=== PATIENT | female | born 1940 | race Caucasian/White ===

== ENCOUNTER 2018-09-12 10:37 | Day surgery (SDC) | payer MEDICARE, OTHER ==
[~2018-09-12 10:37] MED LIST: Lactated Ringers 1,000 ML IV SCH; Sodium Chloride 0.9% 10 ML Syringe FLUSH PRN
[2018-09-12] MEDS ORDERED: Propofol 200 MG/20 ML SDV ONE ×2 (10:54→13:16)
[2018-09-12] MEDS ORDERED: fentaNYL 100 MCG/2 ML SDV ONE (10:56)
--- NOTE | 2018-09-12 14:09 | OR ---
PREOPERATIVE DIAGNOSIS: Screening colonoscopy. POSTOPERATIVE DIAGNOSIS: Screening colonoscopy. PROCEDURE PERFORMED: Screening colonoscopy. INDICATION: The patient is a 77-year-old female, who presents for screening colonoscopy at this time. PROCEDURE IN DETAIL: This was done in the endoscopy suite. Sedation was given per Anesthesia. She was placed in left lateral position. First, a rectal exam was done, was normal. Scope was introduced in the rectum, slowly advanced to the rectum, sigmoid, descending, transverse, and descending colon until the cecum was reached. Upon reaching the cecum, the scope was slowly withdrawn looking at all mucosal surfaces on the way out. No mucosal abnormalities, lesions, or polyps were noted. FINAL DIAGNOSIS: Normal colonoscopy. BKD: 09/12/2018 13:22:19 MODL: 09/12/2018 13:54:05 /[id number]
== END 2018-09-12 14:35 | disposition home or self-care (01) ==
LOC: VM.SDS 10:37
PROVIDERS: ATTEND Surgery
DX: Z12.11 Encounter for screening for malignant neoplasm of colon (principal); J01.91 Acute recurrent sinusitis, unspecified; J44.9 Chronic obstructive pulmonary disease, unspecified; I34.0 Nonrheumatic mitral (valve) insufficiency; D64.9 Anemia, unspecified; K21.9 Gastro-esophageal reflux disease without esophagitis; F32.9 Major depressive disorder, single episode, unspecified; M19.90 Unspecified osteoarthritis, unspecified site; E74.39 Other disorders of intestinal carbohydrate absorption; Z91.040 Latex allergy status; Z88.2 Allergy status to sulfonamides; Z91.018 Allergy to other foods; Z91.048 Other nonmedicinal substance allergy status; Z79.1 Long term (current) use of non-steroidal anti-inflammatories (NSAID); Z79.899 Other long term (current) drug therapy; Z79.82 Long term (current) use of aspirin
CPT/HCPCS: 00812; G0121; J2704; J3010; J7120

== ENCOUNTER 2018-11-03 13:14 | Inpatient (IN) | payer MEDICARE, OTHER ==
[2018-11-03] MEDS ORDERED: Albuterol 0.083% 2.5 MG/3 ML Neb Soln INH PRN (18:57)
[2018-11-03] MEDS: Acetaminophen/oxyCODONE 325-5 MG Tab PO PRN (20:58)
--- NOTE | 2018-11-04 01:43 | HP ---
CHIEF COMPLAINT: 1. Left knee arthroplasty revision. 2. Weakness. 3. Deconditioning. HISTORY OF PRESENT ILLNESS: The patient underwent a left total knee arthroplasty at [facility] on 10/31/2018, this was a revision of a previous left knee arthroplasty. According to [facility] medical records, the patient's surgery was uneventful. The patient did not have any postoperative complications. The patient was able to progress well with physical and occupational therapy, but continued to have weakness and deconditioning; therefore, necessitating continued rehab on swing bed. The patient offers no specific complaints today. She states that her pain is well controlled. The patient is very encouraged to work with Physical Therapy and Occupational Therapy. The patient denies any new headache, blurred vision, tinnitus, chest pain, abdominal pain, nausea, vomiting, diarrhea, constipation. The patient is not really passing much gas. She has mild pain at the surgical site. PAST MEDICAL HISTORY: 1. Abscess of right hip. 2. Acid reflux. 3. ADD. 4. Anemia. 5. Arthritis. 6. Asthma. 7. Chronic sinusitis. 8. Closed right hip fracture. 9. COPD. 10.Depression. 11.DJD. 12.Glucose intolerance. 13.Mitral regurgitation. 14.Osteomyelitis. 15.Osteopenia. 16.Stress incontinence. PAST SURGICAL HISTORY: 1. Arthroplasty of the glenohumeral joint of the shoulder. 2. Cataract extraction. 3. Open reduction and internal fixation of the right hip. 4. I and D of the right hip. 5. Joint replacement of the right hip. 6. Sinus surgery. 7. Left total hip arthroplasty. 8. Tubal ligation. 9. YAG capsulotomy, left eye. FAMILY HISTORY: Noncontributory. SOCIAL HISTORY: The patient is currently . 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 The patient has never been a cigarette smoker. The patient drinks alcohol on a rare occasion. The patient does not have any illegal drug use. REVIEW OF SYSTEMS: Constitutional: Positive for fatigue. No fevers. HEENT: Negative for any ear pain. Eyes: Negative for any visual disturbances. Respiratory: Negative for shortness of breath. Cardiovascular: Denies any chest pain. Gastrointestinal: Denies any abdominal pain. Musculoskeletal: Has mild pain of the left knee. Skin: Negative. Neurological: Denies any headaches. PHYSICAL EXAMINATION: Constitutional: The patient is oriented to person, place, and time. She appears well nourished. No acute distress. The patient is cooperative. HEENT: Head is normocephalic and atraumatic. Extraocular movements are intact bilaterally. Neck: Supple. Cardiovascular: Regular rate and rhythm. S1 and S2 present. Respiratory: Clear to auscultation. Abdominal: Abdomen is soft. Bowel sounds are positive x4. No distention. No tenderness. Neurologic: She is alert and oriented to person, place, and time. Musculoskeletal: Wound VAC dressing is in place over the surgical site of the left knee arthroplasty; therefore, unable to fully assess. LABORATORY STUDIES: None. IMAGING STUDIES: None. ASSESSMENT: 1. Left total knee arthroplasty, revision at [facility]. 2. Weakness. 3. Deconditioning. 4. Gastroesophageal reflux disease. 5. Osteoarthritis of the shoulder. 6. History of left and right hip replacements. PLAN: The patient will be admitted to the Swing Bed Unit at [facility] for ongoing rehab with Physical and Occupational Therapy for weakness and deconditioning. The patient is a full code. The patient does wish to be transferred to a higher level of care should the need arise. We will continue the patient's home medications as ordered. We will stop the patient's meloxicam. We will continue with pain medication of oxycodone. It is unclear if the patient should continue on the Lovenox at this point as the medical records sent with the patient do not indicate if the patient is to continue on the Lovenox. I do anticipate the patient will be on our Swing Bed Unit for 5-7 days depending upon how well she does with physical therapy. I would like the patient to have a home safety evaluation prior to discharge, as she does have many steps in her home. Note: This patient was seen and examined by me as an [facility] Provider. TB: 11/03/2018 20:21:35 MODL: 11/04/2018 01:35:00 /[id number]
[2018-11-04] MEDS: Pantoprazole 40 MG Tab.CR PO SCH (06:00)
[2018-11-04] MEDS ORDERED: Meloxicam 7.5 MG Tab PO SCH (08:00)
[2018-11-04] MEDS: Acetaminophen/oxyCODONE 325-5 MG Tab PO PRN ×3 (08:30→22:11)
[2018-11-04] MEDS: Multivitamin, Stress Formula with Zinc Tab PO SCH (09:14)
[2018-11-04] MEDS: Aspirin 81 MG Tab.Chew PO SCH (09:15)
[2018-11-04] MEDS: Calcium Carbonate/Vitamin D3 1250 MG-200 Unit Tab PO SCH (09:15)
[2018-11-04] MEDS: buPROPion 150 MG Tab.ER PO SCH (09:15)
[2018-11-04] MEDS: Furosemide 40 MG Tab PO SCH (09:15)
[2018-11-05] MEDS: Pantoprazole 40 MG Tab.CR PO SCH (06:08)
[2018-11-05] MEDS: Calcium Carbonate/Vitamin D3 1250 MG-200 Unit Tab PO SCH (08:05)
[2018-11-05] MEDS: buPROPion 150 MG Tab.ER PO SCH (08:05)
[2018-11-05] MEDS: Furosemide 40 MG Tab PO SCH (08:05)
[2018-11-05] MEDS: Aspirin 81 MG Tab.Chew PO SCH (08:06)
[2018-11-05] MEDS: Acetaminophen/oxyCODONE 325-5 MG Tab PO PRN (08:06)
[2018-11-05] MEDS: Multivitamin, Stress Formula with Zinc Tab PO SCH (08:06)
[2018-11-06] MEDS: Acetaminophen 650 MG Tab.ER PO PRN ×2 (03:20→22:47)
[2018-11-06] MEDS: Pantoprazole 40 MG Tab.CR PO SCH (06:13)
[2018-11-06] MEDS: Docusate Sodium 100 MG Cap PO PRN (08:07)
[2018-11-06] MEDS: buPROPion 150 MG Tab.ER PO SCH (08:07)
[2018-11-06] MEDS: Furosemide 40 MG Tab PO SCH (08:07)
[2018-11-06] MEDS: Calcium Carbonate/Vitamin D3 1250 MG-200 Unit Tab PO SCH (08:08)
[2018-11-06] MEDS: Aspirin 81 MG Tab.Chew PO SCH (08:08)
[2018-11-06] MEDS: Acetaminophen/oxyCODONE 325-5 MG Tab PO PRN (08:09)
[2018-11-06] MEDS: Multivitamin, Stress Formula with Zinc Tab PO SCH (08:10)
[2018-11-07] MEDS: Pantoprazole 40 MG Tab.CR PO SCH (06:47)
[2018-11-07] MEDS: Aspirin 81 MG Tab.Chew PO SCH (08:32)
[2018-11-07] MEDS: Calcium Carbonate/Vitamin D3 1250 MG-200 Unit Tab PO SCH (08:32)
[2018-11-07] MEDS: Acetaminophen 650 MG Tab.ER PO PRN (08:32)
[2018-11-07] MEDS: Multivitamin, Stress Formula with Zinc Tab PO SCH (08:32)
[2018-11-07] MEDS: Furosemide 40 MG Tab PO SCH (08:32)
[2018-11-07] MEDS: buPROPion 150 MG Tab.ER PO SCH (08:32)
[2018-11-07] MEDS: Acetaminophen/oxyCODONE 325-5 MG Tab PO PRN ×3 (09:41→20:51)
[2018-11-08] MEDS: Acetaminophen/oxyCODONE 325-5 MG Tab PO PRN ×4 (00:40→21:44)
[2018-11-08] MEDS: Loratadine 10 MG Tab PO PRN ×2 (04:00→21:44)
[2018-11-08] MEDS: Pantoprazole 40 MG Tab.CR PO SCH (06:21)
[2018-11-08] MEDS: Calcium Carbonate/Vitamin D3 1250 MG-200 Unit Tab PO SCH (07:41)
[2018-11-08] MEDS: buPROPion 150 MG Tab.ER PO SCH (07:41)
[2018-11-08] MEDS: Aspirin 81 MG Tab.Chew PO SCH (07:41)
[2018-11-08] MEDS: Furosemide 40 MG Tab PO SCH (07:41)
[2018-11-08] MEDS: Multivitamin, Stress Formula with Zinc Tab PO SCH (07:41)
[2018-11-09] MEDS: Pantoprazole 40 MG Tab.CR PO SCH (06:18)
[2018-11-09] MEDS: Acetaminophen/oxyCODONE 325-5 MG Tab PO PRN ×3 (07:51→23:05)
[2018-11-09] MEDS: buPROPion 150 MG Tab.ER PO SCH (07:51)
[2018-11-09] MEDS: Calcium Carbonate/Vitamin D3 1250 MG-200 Unit Tab PO SCH (07:51)
[2018-11-09] MEDS: Aspirin 81 MG Tab.Chew PO SCH (07:51)
[2018-11-09] MEDS: Furosemide 40 MG Tab PO SCH (07:51)
[2018-11-09] MEDS: Multivitamin, Stress Formula with Zinc Tab PO SCH (07:51)
[2018-11-09] MEDS: Docusate Sodium 100 MG Cap PO PRN (23:05)
[2018-11-10] MEDS: Pantoprazole 40 MG Tab.CR PO SCH (06:23)
[2018-11-10] MEDS: Calcium Carbonate/Vitamin D3 1250 MG-200 Unit Tab PO SCH (08:28)
[2018-11-10] MEDS: Furosemide 40 MG Tab PO SCH (08:29)
[2018-11-10] MEDS: Multivitamin, Stress Formula with Zinc Tab PO SCH (08:29)
[2018-11-10] MEDS: buPROPion 150 MG Tab.ER PO SCH (08:29)
[2018-11-10] MEDS: Aspirin 81 MG Tab.Chew PO SCH (08:29)
[2018-11-10] MEDS: Acetaminophen/oxyCODONE 325-5 MG Tab PO PRN ×2 (09:51→21:18)
[2018-11-10] MEDS: Acetaminophen 650 MG Tab.ER PO PRN (21:18)
[2018-11-11] MEDS: Pantoprazole 40 MG Tab.CR PO SCH (06:32)
--- NOTE | 2018-11-11 07:35 | PCM.DCSUM1 ---
Discharge Summary - Hospital Course Diagnosis: Stroke: No Modified Frio Scale: No Symptoms at All Modified Frio Scale Score: 0 - Discharge Data Discharge Date: 11/11/18 Discharge Disposition: Home, W Home Health Agency 06 Condition: Good - Discharge Diagnosis/Problem(s) (1) History of arthroplasty of left knee SNOMED Code(s): 441131219 ICD Code: Z96.652 - PRESENCE OF LEFT ARTIFICIAL KNEE JOINT Status: Acute Current Visit: Yes (2) Weakness SNOMED Code(s): 18016203 ICD Code: R53.1 - WEAKNESS Status: Acute Current Visit: Yes (3) Physical deconditioning SNOMED Code(s): 75824933166855 ICD Code: R53.81 - OTHER MALAISE Status: Acute Current Visit: Yes (4) Osteoarthritis of left knee SNOMED Code(s): 558962047277393 ICD Code: M17.12 - UNILATERAL PRIMARY OSTEOARTHRITIS, LEFT KNEE Status: Acute Current Visit: Yes Qualifiers: Osteoarthritis type: primary Qualified Code(s): M17.12 - Unilateral primary osteoarthritis, left knee - Patient Summary/Data Operative Procedure(s) Performed: Left Knee Arthroplasty revision at [facility] 10/31/2018 Complications: None Consults: Consultations 11/03/18 14:01 Consult to Case Management/Tanning Drum Operator [CONS] Routine OT Evaluation and Treatment [CONS] Routine PT Evaluation and Treatment [CONS] Routine Labs Pending at D/C: None Recommended Follow-up Testing/Procedures: Continue with Physical Therapy per Home Health Planned Operative Procedure(s) after DC: None Hospital Course: Patient admitted to Swing Bed at [facility] s/p Left knee arthroplasty 10/31 for weakness and deconditioning. Patient did very well with hospital PT and OT. Vitals remained stable. No fevers. Patient was able to participate with PT without problems. No issues with urination or BM's. Tolerated diet well. Patient well controlled with Oxy/APAP. Wound Vac dressing discontinued 04/2018 per Ortho recommendations. - Patient Instructions Diet: Heart Healthy Diet Activity: As Tolerated (per Physical Therapy recommendations), Elevate Extremity , Rest and Relax Today Driving: Do Not Drive Showering/Bathing: May Shower Wound/Incision Care: Keep Operative Site/Wound Site Clean and Dry, Change Dressing Daily Notify Provider of: Fever, Increased Pain, Swelling and Redness, Drainage, Nausea and/or Vomiting - Discharge Plan *PRESCRIPTION DRUG MONITORING PROGRAM REVIEWED*: Not Applicable *COPY OF PRESCRIPTION DRUG MONITORING REPORT IN PATIENT VLADIMIR: Not Applicable Home Medications: Home Meds Albuterol Sulfate [Albuterol Sulfate Hfa] 2 puff PO Q6H PRN 07/22/18 [History] Aspirin 81 mg PO DAILY 07/22/18 [History] Cetirizine [ZyrTEC] 10 mg PO DAILY PRN 07/22/18 [History] Multivitamin with Minerals [Multiple Vitamin] 1 tab PO DAILY 07/22/18 [History] Pantoprazole Sodium [Protonix] 40 mg PO DAILY 07/22/18 [History] buPROPion HCl [Wellbutrin Xl] 150 mg PO DAILY 07/22/18 [History] Calcium Carbonate/Vitamin D3 [Calcium Carbonate/Vitamin D 600 MG-200 Unit] 2 tab PO DAILY 11/03/18 [History] Furosemide 40 mg PO DAILY 11/07/18 [History] Acetaminophen/oxyCODONE [Percocet 325-5 MG] 1 tab PO Q4H PRN tablet 11/11/18 [ Rx] Oxygen Therapy Mode: Room Air Patient Handouts: Knee Rehabilitation Guidelines Following Surgery, Total Knee Replacement, Care After, [id number] Referrals: Kailyn Bejarano DO [Primary Care Provider] - - Discharge Summary/Plan Comment DC Time >30 min.: Yes Discharge Summary/Plan Comment: Patient will be discharged home today. No changes with home medications, continue the same. Activity per PT/OT recommendations. Continue with OTC stool softeners while on narcotic pain medications. Patient to follow up with Dr. Bejarano in one week for a hospital follow up. [id number] Home Health Certification: Reason: Weakness, Deconditioning, Ambulation, Dressing changes, assistance with medications Patient will required the assistance of Home Health due to the above reasons. Patient is home bound s/p left knee arthroplasty. Patient will required assistance with daily dressing changes to left knee until healed. Dr. Kailyn Bejarano has accepted and will follow this patient while on Home Health services. - General Info Date of Service: 11/11/18 Admission Dx/Problem (Free Text: Left Knee Arthroplasty revision Weakness Deconditioning Subjective Update: Patient offers no specific complaints. She states her pain is well controlled. She is requesting to go home. She has been working well with physical therapy. Denies any issues with BM's or urination. Tolerating diet well. Functional Status: Reports: Pain Controlled, Tolerating Diet, Ambulating, Urinating. Denies: New Symptoms Numeric/FACES Score: 0 - Review of Systems General: Reports: Weakness. Denies: Fever, Chills Pulmonary: Denies: Shortness of Breath, Cough Cardiovascular: Denies: Chest Pain, Palpitations Gastrointestinal: Denies: Abdominal Pain, Nausea, Vomiting Musculoskeletal: Denies: Joint Pain, Joint Swelling Skin: Reports: No Symptoms Neurological: Reports: No Symptoms - Patient Data Vitals - Most Recent: Last Vital Signs Temp 99 F 11/11/18 05:51 Pulse 64 11/11/18 05:51 Resp 18 11/11/18 05:51 BP 131/66 11/11/18 05:51 Pulse Ox 99 11/11/18 05:51 Weight - Most Recent: 240 lb 4.8 oz I&O - Last 24 hours: Intake & Output 11/10/18 11/11/18 11/11/18 22:59 06:59 14:59 Intake Total 240 Balance 240 Med Orders - Current: Current Medications Acetaminophen (Tylenol Arthritis Pain) 650 mg PO Q8H PRN PRN Reason: Pain Last Admin: 11/10/18 21:18 Dose: 650 mg Albuterol (Proventil Neb Soln) 2.5 mg INH Q6HR PRN PRN Reason: Shortness of Breath Aspirin (Aspirin) 81 mg PO DAILY [facility] Last Admin: 11/10/18 08:29 Dose: 81 mg Bupropion HCl (Wellbutrin Xl) 150 mg PO DAILY [facility] Last Admin: 11/10/18 08:29 Dose: 150 mg Calcium Carbonate (Calcium Carbonate/Vitamin D 1250 Mg-200 Unit) 2 tab PO DAILY [facility] Last Admin: 11/10/18 08:28 Dose: 2 tab Docusate Sodium (Colace) 100 mg PO BID PRN PRN Reason: Constipation Last Admin: 11/09/18 23:05 Dose: 100 mg Furosemide (Lasix) 40 mg PO DAILY [facility] Last Admin: 11/10/18 08:29 Dose: 40 mg Loratadine (Claritin) 10 mg PO DAILY PRN PRN Reason: Allergies Last Admin: 11/08/18 21:44 Dose: 10 mg Oxycodone/Acetaminophen (Percocet 325-5 Mg) 1 tab PO Q4H PRN PRN Reason: Pain Last Admin: 11/10/18 21:18 Dose: 1 tab Pantoprazole Sodium (Protonix) 40 mg PO DAILY@0700 [facility] Last Admin: 11/11/18 06:32 Dose: 40 mg Vitamin B Complex/Vit C/Vit E/Zinc (Stress Formula With Zinc) 1 tab PO DAILY [facility] Last Admin: 11/10/18 08:29 Dose: 1 tab Discontinued Medications Meloxicam (Mobic) 7.5 mg PO DAILY RUPERTO - Exam General: Reports: Alert, Oriented, Cooperative, No Acute Distress Lungs: Reports: Clear to Auscultation, Normal Respiratory Effort Cardiovascular: Reports: Regular Rate, Regular Rhythm GI/Abdominal Exam: Normal Bowel Sounds, Soft, Non-Tender Extremities: Normal Inspection Skin: Reports: Warm, Dry Wound/Incisions: Reports: Healing Well, Dressing Dry and Intact, No Drainage Neurological: Reports: No New Focal Deficit *Q Meaningful Use (DIS) - VTE *Q VTE Mechanical Contraindications *Q: At Risk for Falls
[2018-11-11] MEDS: buPROPion 150 MG Tab.ER PO SCH (08:05)
[2018-11-11] MEDS: Furosemide 40 MG Tab PO SCH (08:06)
[2018-11-11] MEDS: Aspirin 81 MG Tab.Chew PO SCH (08:06)
[2018-11-11] MEDS: Multivitamin, Stress Formula with Zinc Tab PO SCH (08:06)
[2018-11-11] MEDS: Calcium Carbonate/Vitamin D3 1250 MG-200 Unit Tab PO SCH (08:06)
[2018-11-11] MEDS: Acetaminophen/oxyCODONE 325-5 MG Tab PO PRN (08:46)
== END 2018-11-11 13:45 | disposition home health service (06) | DRG 561 ==
LOC: VM.MS 13:14
PROVIDERS: ADMIT Nurse Practitioner Family; ATTEND Nurse Practitioner Family
DX: Z47.1 Aftercare following joint replacement surgery (principal); R53.1 Weakness; K21.9 Gastro-esophageal reflux disease without esophagitis; M19.90 Unspecified osteoarthritis, unspecified site; J44.9 Chronic obstructive pulmonary disease, unspecified; J32.9 Chronic sinusitis, unspecified; F32.9 Major depressive disorder, single episode, unspecified; I34.0 Nonrheumatic mitral (valve) insufficiency; M85.80 Other specified disorders of bone density and structure, unspecified site; N39.3 Stress incontinence (female) (male); Z96.643 Presence of artificial hip joint, bilateral; Z96.652 Presence of left artificial knee joint
CPT/HCPCS: 87081; 87500; 97110-GP; 97116-GP; 97161-GP; 97165-GO; 97535-GO; A9270-GY

== ENCOUNTER 2024-05-06 11:41 | Emergency (ER) | payer MEDICARE, OTHER ==
[2024-05-06] MEDS ORDERED: Sodium Chloride 0.9% 10 ML Syringe FLUSH PRN (11:44)
[2024-05-06] MEDS: Lactated Ringers 1,000 ML IV ONE (12:10)
[2024-05-06 12:11] LABS: BASOPHILS PERCENT AUTO 0.1 % (0.2-1.2); EOSINOPHILS ABSOLUTE AUTO 0.1 x10^3/uL (0.0-0.5); EOSINOPHILS PERCENT AUTO 0.6 % (0.0-4.0); HEMATOCRIT 32.4 % (33.0-47.0); HEMOGLOBIN 10.5 g/dL (12.0-16.0); IMMATURE GRAN ABSOLUTE AUTO 0.02 x10^3/uL (0.00-0.07); LYMPHOCYTES ABSOLUTE AUTO 0.5 x10^3/uL (1.0-4.8); LYMPHOCYTES PERCENT AUTO 3.4 % (25.0-50.0); MEAN CORPUSCULAR HEMOGLOBIN 30.1 pg (26.0-32.0); MEAN CORPUSCULAR HGB CONC 32.4 g/dL (32.0-36.0); MEAN CORPUSCULAR VOLUME 92.8 fL (78.0-93.0); MONOCYTES ABSOLUTE AUTO 0.8 x10^3/uL (0.0-0.8); MONOCYTES PERCENT AUTO 5.8 % (2.0-11.0); RED BLOOD CELL COUNT 3.49 x10^6/uL (4.00-5.50); WHITE BLOOD CELL COUNT,WBC 13.4 x10^3/uL (4.0-10.0)
[2024-05-06 12:18] LABS: PLATELET COUNT,PLT 241 x10^3/uL (130-400)
[2024-05-06 12:31] LABS: INR 1.1 (0.9-1.1); PROTHROMBIN TIME 11.7 SEC (9.6-12.0); PTT,PARTIAL THROMBOPLSTIN TIME 33.3 SEC (23.5-33.2)
[2024-05-06 12:34] LABS: LACTIC ACID 2.2 mmol/L (0.4-2.0)
[2024-05-06 12:39] LABS: A/G RATIO 0.47; ALANINE AMINOTRANSFERASE,ALT 73 U/L (14-59); ALBUMIN 2.7 g/dL (3.4-5.0); ALKALINE PHOSPHATASE 137 U/L (46-116); ASPARTATE AMNIOTRANSFERASE,AST 227 U/L (15-37); BILIRUBIN TOTAL 0.8 mg/dL (0.2-1.0); BLOOD UREA NITROGEN,BUN 58 mg/dL (7-18); C-REACTIVE PROTEIN 11.11 mg/dL (<=0.50); CALCIUM 9.7 mg/dL (8.5-10.1); CARBON DIOXIDE,CO2 22 mmol/L (21-32); CHLORIDE,CL 104 mmol/L (98-107); ETHANOL BLOOD MEDICAL 5 mg/dL (0-3); GLUCOSE RANDOM 120 mg/dL (70-99); MAGNESIUM 2.1 mg/dL (1.8-2.4); POTASSIUM,K 4.5 mmol/L (3.5-5.1); PRO B-TYPE NATRIUR PEPT,BNPPRO 8908 pg/mL (<=450); PROTEIN TOTAL,TP 8.5 g/dL (6.4-8.2); SODIUM,NA 141 mmol/L (136-145); TSH ULTRASENSITIVE 3.944 uIU/mL (0.358-3.74)
[2024-05-06 12:40] LABS: ANION GAP 19.5 mmol/L (5-15); ESTIMATED GFR 12 mL/min (>=60)
[2024-05-06 12:41] LABS: CREATININE 3.6 mg/dL (0.55-1.02)
[2024-05-06 12:58] LABS: BILIRUBIN,URINE SMALL (NEGATIVE); COLOR,URINE DARK YELLOW (YELLOW); GLUCOSE,URINE NEGATIVE (NEGATIVE); KETONES,URINE NEGATIVE (NEGATIVE); LEUKOCYTE ESTERASE,URINE NEGATIVE (NEGATIVE); NITRITE,URINE NEGATIVE (NEGATIVE); OCCULT BLOOD,URINE MODERATE (NEGATIVE); PH,URINE 5.5 (5.0-8.0); PROTEIN,URINE 100 mg/dL (NEGATIVE); UROBILINOGEN,URINE 0.2 EU/dL (0.2)
[2024-05-06 13:01] LABS: APPEARANCE,URINE SLIGHTLY CLOUDY (CLEAR)
[2024-05-06 13:04] LABS: AMPHETAMINES SCREEN, URINE NEGATIVE (NEGATIVE); BARBITURATE SCREEN,URINE NEGATIVE (NEGATIVE)
[2024-05-06 13:05] LABS: BACTERIA,URINE RARE /HPF (NOT SEEN); BENZODIAZEPINES SCREEN,URINE NEGATIVE (NEGATIVE); BUPRENORPHINE SCREEN,URINE NEGATIVE (NEGATIVE); COCAINE METABOLITES,URINE NEGATIVE (NEGATIVE); HYALINE CASTS,URINE OCCASIONAL; METHADONE SCREEN, URINE NEGATIVE (NEGATIVE); METHAMPHETAMINE SCREEN, URINE NEGATIVE (NEGATIVE); MUCUS,URINE OCCASIONAL /LPF (NOT SEEN); OXYCODONE SCREEN,URINE NEGATIVE (NEGATIVE); PCP SCREEN,URINE NEGATIVE (NEGATIVE); SQUAMOUS EPITHELIAL CELLS,UR OCCASIONAL /HPF (NOT SEEN); THC SCREEN,URINE 50 NG/ML NEGATIVE (NEGATIVE); WBC,URINE 0-5 /HPF (NOT SEEN)
[2024-05-06] MEDS: Piperacillin/Tazobactam 2.25 GM in Sodium Chloride 0.9% 100 ML IV ONE (13:08)
[2024-05-06 13:20] LABS: CREATINE KINASE,CK 6901 U/L (26-192)
[2024-05-06] MEDS: VANCOmycin 1.5 GM/300 ML 1.5 GM in Premix Bag 1 BAG IV ONE (14:00)
[2024-05-06] MEDS ORDERED: Lactated Ringers 1,000 ML IV SCH (14:40)
== END 2024-05-06 15:05 | disposition short-term general hospital (02) ==
LOC: VM.ED 11:41
DX: I13.0 Hypertensive heart and chronic kidney disease with heart failure and stage 1 through stage 4 chronic kidney disease, or unspecified chronic kidney disease (principal); N18.6 End stage renal disease; I50.9 Heart failure, unspecified; N17.9 Acute kidney failure, unspecified; L03.116 Cellulitis of left lower limb; J44.89 Other specified chronic obstructive pulmonary disease; Z79.899 Other long term (current) drug therapy; Z79.82 Long term (current) use of aspirin; Z91.018 Allergy to other foods; Z88.2 Allergy status to sulfonamides; Z91.040 Latex allergy status; Z91.048 Other nonmedicinal substance allergy status
CPT/HCPCS: 36415; 70450; 71045; 80053; 80305-QW; 80307; 81001; 82140; 82550; 83605; 83735; 83880; 84443; 84484; 85025; 85610; 85730; 86140; 87040; 87070; 87077; 87186; 93005; 93010; 96361; 96365; 96367; 99284; 99285-25; J2543; J3372; J3490; J7120